=== PATIENT | female | born 1960 | race Caucasian/White ===

== ENCOUNTER → 2023-10-15 10:28 | Outpatient (CLI) | payer OTHER, SELFPAY ==
--- NOTE | 2023-10-15 10:31 | DI.MRI.S_ITS ---
PROCEDURE: MR LUMBAR SPINE WO CON INDICATIONS: radiculopathy cervical region TECHNIQUE: Noncontrast sagittal T1 spin echo and T2 fast echo, sagittal STIR, and T2 fast spin echo through the lumbar spine. In cases with scoliosis, additional coronal T2 fast spin echo may be performed. COMPARISON: Outside Film, CT, CT ABDOMEN WITH/WITHOUT CONTRAST, 08/17/2019, 12:03. FINDINGS: Image quality: Diagnostic, with note made of motion artifact. Alignment and Curvature: Grade 2 anterolisthesis is seen at the L4-L5 level. Associated pars defects are not seen. Bone Marrow: Marrow is of normal overall signal. No acute vertebral body compression fractures. Spinal Cord: Conus medullaris terminates at the L1 level. Visualized cord demonstrates normal signal and size. Paraspinous Soft Tissues: No paravertebral masses. T12-L1: Normal appearance. L1-L2: Normal appearance. L2-L3: Normal appearance. L3-L4: No significant abnormality is seen. L4-L5: Moderate to severe loss of disc height and disc signal can be seen. Reactive marrow endplate changes are seen, which demonstrate mixed T1 weighted and T2-weighted signal, and are attributed to a combination of edema and fatty metaplasia (Modic type I and Modic type II changes). Moderate generalized disc bulge is seen. There is a superimposed central disc protrusion. Moderate to prominent facet hypertrophy is seen. There is moderate to severe bilateral neural foraminal narrowing seen, with an associated degree of compression seen upon the exiting nerve roots. Moderate to severe central canal narrowing is seen at this level. L5-S1: Moderate loss of disc height is seen. Loss of disc signal is seen. Moderate generalized disc bulge is seen. There is a superimposed central disc protrusion. There is a focal annular fissure seen posteriorly. Mild facet joint hypertrophy is seen. There is mild right-sided and [id number] left-sided neural foraminal narrowing. No significant central canal narrowing is seen. IMPRESSION: Focal L4-L5 degenerative change can be seen, with milder degenerative changes seen elsewhere. Dictated by: Bhargav Perez M.D. on 10/15/2023 at 17:27 Approved by: Bhargav Perez M.D. on 10/15/2023 at 17:30
--- NOTE | 2023-10-15 10:31 | DI.MRI.S_ITS ---
PROCEDURE: MR CERVICAL SPINE WO CON INDICATIONS: radiculopathy cervical region TECHNIQUE: Noncontrast sagittal T1 spin echo and T2 fast spin echo, sagittal STIR, foraminal oblique sagittal T2 fast spin echo, and axial gradient echo or T2 fast spin echo through the cervical spine. COMPARISON: [facility], MR, MR LUMBAR SPINE WO CON, 10/15/2023, 10:42. FINDINGS: Image quality: This examination is limited by involuntary motion artifact. Alignment and Curvature: There is overall straightening of the normal cervical lordosis. Mild anterolisthesis is seen at C4-C5. Minimal retrolisthesis is seen at C5-C6 and C6-C7. Bone Marrow: Marrow demonstrates normal overall signal. Spinal Cord: Visualized spinal cord has normal size and signal. No cerebellar tonsillar herniation. Paraspinous Soft Tissues: No paravertebral masses. Prevertebral soft tissues are normal in thickness. C2-C3: The disc height is well-preserved. Loss of disc signal is seen at this level. A mild degree of generalized disc osteophyte complex is seen. There is moderate right-sided and mild left-sided facet hypertrophy. No neural foraminal narrowing or central canal narrowing can be seen. C3-C4: The disc height is well-preserved. Loss of disc signal is seen at this level. A mild degree of generalized disc osteophyte complex is seen. There is at least moderate right-sided and mild left-sided facet hypertrophy. There is moderate right-sided and no left-sided neural foraminal narrowing. No central canal narrowing is seen. C4-C5: [id number] loss of disc height and disc signal can be seen. Moderate generalized disc osteophyte complex is seen. There is at least moderate right-sided and moderate left-sided facet hypertrophy. There is moderate to severe right-sided and moderate left-sided neural foraminal narrowing. Mild to moderate central canal narrowing is seen. C5-C6: There is at least moderate loss of disc height and disc signal seen. [id number] disc osteophyte complex is seen. Moderate facet joint hypertrophy is seen. There is moderate to severe right-sided and moderate left-sided neural foraminal narrowing. Mild central canal narrowing is seen. C6-C7: At least moderate loss of disc height and disc signal can be seen. Moderate generalized disc osteophyte complex is seen. There is a mild central disc osteophyte protrusion. Mild to moderate facet hypertrophy is seen. Moderate to severe bilateral neural foraminal narrowing can be seen, left worse than right. Mild central canal narrowing is seen. C7-T1: The disc height and disk signal are relatively well-preserved. Mild to moderate facet hypertrophy can be seen. No significant neural foraminal or central canal narrowing can be seen. IMPRESSION: Multiple levels of cervical spine degenerative change can be seen, which are worst at C4-C5 and C5-C6. Dictated by: Bhargav Perez M.D. on 10/15/2023 at 17:38 Approved by: Bhargav Perez M.D. on 10/15/2023 at 17:42
== END ==
PROVIDERS: PCP Internal Medicine; Referring Provider Physical Medicine & Rehabilitation; Visit Provider Physical Medicine & Rehabilitation
DX: M47.26 Other spondylosis with radiculopathy, lumbar region (principal); M47.27 Other spondylosis with radiculopathy, lumbosacral region; M47.22 Other spondylosis with radiculopathy, cervical region
CPT/HCPCS: 72141; 72148